=== PATIENT | male | born 1990 | race Caucasian/White ===

== ENCOUNTER 2025-01-12 18:13 | Emergency (ER) | payer SELFPAY ==
[2025-01-12 18:19] VITALS: BP 140/94
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
[2025-01-12 19:10] LABS: Hematocrit 41.6 % (39.0-52.0); Hemoglobin 14.4 g/dL (13.0-18.0); Mean Corp Hgb Conc. 34.6 g/dL (33.0-37.0); Mean Corpuscular Volume 90.6 fL (80.0-94.0); Nucleated Red Blood Cells % 0 % (-); Platelet Count 392 10^3/uL (130-400); Red Cell Dist. Width 11.7 % (11.5-14.5)
[2025-01-12 19:32] VITALS: BMI 28.2
[2025-01-12 19:35] VITALS: BP 142/81
[2025-01-12 19:35] LABS: ALT (SGPT) 33 U/L (0-50); AST (SGOT) 29 U/L (17-59); Albumin 4.9 g/dl (3.5-5.0); Alkaline Phosphatase 68 U/L (38-126); Blood Urea Nitrogen 12 mg/dl (9-20); Calcium 9.3 mg/dl (8.4-10.2); Carbon Dioxide 25 mmol/L (22-30); Chloride 106 mmol/L (98-107); Estimated Creatinine Clearance 106 ml/min; Glucose 93 mg/dl (70-99); Potassium 3.9 mmol/L (3.5-5.1); Sodium 142 mmol/L (135-145); Total Protein 7.5 g/dl (6.3-8.2); eGFR > 60.00
[2025-01-12 19:36] LABS: INR 0.79; PT 11.4 Sec (11.4-14.6)
[2025-01-12 19:37] LABS: APTT 23.5 Sec (23.4-35.0)
[2025-01-12 19:49] LABS: Urine Character Clear (Clear)
[2025-01-12 20:00] VITALS: BP 125/79
== END 2025-01-12 21:17 | disposition home or self-care (01) ==
LOC: EMR 18:13
PROVIDERS: EMERGENCY PHYSICIAN Emergency Medicine
DX: S16.1XXA Strain of muscle, fascia and tendon at neck level, initial encounter (principal); S42.022A Displaced fracture of shaft of left clavicle, initial encounter for closed fracture; F10.129 Alcohol abuse with intoxication, unspecified; R03.0 Elevated blood-pressure reading, without diagnosis of hypertension; Y90.8 Blood alcohol level of 240 mg/100 ml or more; V86.56XA Driver of dirt bike or motor/cross bike injured in nontraffic accident, initial encounter; W22.09XA Striking against other stationary object, initial encounter; Y93.55 Activity, bike riding
CPT/HCPCS: 99284; 70450; 71260; 72125; 73030; 74177; 80053; 80306; 80307; 81003; 82077; 85025; 85610; 85730; 86850; 86900; 86901; 90715; Q9967

== ENCOUNTER 2025-04-12 06:14 | Day surgery (SDC) | payer OTHER, SELFPAY | END 2025-04-12 08:29 | disposition home or self-care (01) | LOC: GI 06:14 | PROVIDERS: ATTENDING PHYSICIAN Student in an Organized Health Care Education/Training Program | DX: K62.5 Hemorrhage of anus and rectum (principal); K57.30 Diverticulosis of large intestine without perforation or abscess without bleeding | CPT/HCPCS: 45378 ==